=== PATIENT | female | born 1975 | race Caucasian/White ===

== ENCOUNTER → 2025-02-26 | Outpatient (CLI) | payer OTHER, SELFPAY ==
--- NOTE | 2025-02-26 10:59 | XR_ITS ---
Examination: Right hip AP, lateral, AP pelvis 3 views Technique: Hip AP lateral, AP pelvis, 3 views Exam date and time: February 26, 2025, 1113 hours INDICATIONS: Right hip pain and popping sensation 2 months FINDINGS: Bilateral mild hip osteoarthritis No right hip fracture or dislocation. No avascular necrosis IMPRESSION: Mild bilateral hip osteoarthritis Given the patient's presentation, consider MRI hip without contrast follow-up.
[2025-02-26 11:56] LABS: Basophils # (Auto) 0.1 Thou/mm3 (0.0-0.2); Basophils % (Auto) 1 % (0-2.5); Eosinophils # (Auto) 0.1 Thou/mm3 (0.0-0.5); Eosinophils % (Auto) 2 % (0-10); Hematocrit 39.9 % (36.0-46.0); Hemoglobin 12.7 g/dL (12.0-16.0); Immature Granulocytes Auto 0.02 Thou/mm3 (0.00-0.00); Lymphocytes # (Auto) 1.9 Thou/mm3 (1.0-4.8); Lymphocytes % (Auto) 32 % (10-50); Mean Corpuscular HGB Conc 31.8 g/dl (31.0-37.0); Mean Corpuscular Hemoglobin 29.5 pg (25.0-35.0); Mean Corpuscular Volume 93 fL (80-100); Monocytes # (Auto) 0.3 Thou/mm3 (0.0-0.8); Monocytes % (Auto) 5 % (0-12); Neutrophils # (Auto) 3.4 Thou/mm3 (1.8-7.7); Neutrophils % (Auto) 59 % (37-80); Nucleated Red Blood Cell # 0.00 Thou/mm3 (0.00-0.00); Nucleated Red Blood Cell % 0 /100 WBC (0); Platelet Count 308 Thou/mm3 (140-440); RDW Standard Deviation 46.0 fL (36.4-46.3); Red Blood Count 4.31 Miln/mm3 (4.00-5.20); White Blood Count 5.8 Thou/mm3 (3.6-11.0)
[2025-02-26 12:07] LABS: Glucose Estimated Average 100 mg/dL (80-131); Hemoglobin A1C 5.1 % Hgb (4.8-6.0)
[2025-02-26 12:09] LABS: Follicle Stimulating Hormone 26.86 mIU/mL (See Note); Vitamin B12 602 pg/mL (211-911); Vitamin D 25 Hydroxy Total 34.6 ng/mL (7.3-40.2)
[2025-02-26 12:15] LABS: Alanine Aminotransferase 8 U/L (10-49); Albumin, Serum 4.7 gm/dL (3.5-5.0); Albumin/Globulin Ratio 2.2 (1.2-2.2); Alkaline Phosphatase 47 U/L (46-116); Anion Gap 10 (7-16); Aspartate Amino Transferase 18 U/L (0-34); BUN/Creatinine Ratio 18 Ratio (12-20); Bilirubin,Total 0.6 mg/dL (0.3-1.2); Blood Urea Nitrogen 14 mg/dL (9-23); Calcium 9.2 mg/dL (8.3-10.6); Calcium (Corrected) 9.2 mg/dL (8.5-10.1); Carbon Dioxide 25.1 mMol/L (20.0-31.0); Cardiac Risk Estimate 2.9 RATIO (3.7-5.6); Chloride 107 mMol/L (98-107); Cholesterol 181 mg/dL (132-200); Creatinine (Component) 0.8 mg/dL (0.6-1.3); Globulin 2.1 gm/dL (2.3-3.5); Glucose 93 mg/dL (74-106); HDL Cholesterol 63 mg/dL (40-60); LDL Cholesterol,Calculated 107 mg/dL (0-130); Osmolality,Calculated 283 (275-295); Potassium 3.7 mMol/L (3.4-5.1); Sodium 142 mMol/L (136-145); Thyroid Stimulating Hormone 2.36 uIU/mL (0.55-4.78); Total Protein 6.8 gm/dL (5.7-8.2); Triglycerides 57 mg/dL (30-150); Uric Acid 4.5 mg/dL (3.1-7.8); eGFR > 60 See Note
[2025-02-26 12:28] LABS: Collection Type, Urine Clean Catch
[2025-02-26 12:55] LABS: Bacteria,Urine 1+; Bilirubin,Urine Negative (Negative); Blood,Urine 1+ (Negative); Clarity,Urine Turbid (Clear/Hazy); Color,Urine Yellow (Lt Yel-Yel); Glucose, Urine Negative (Negative); Ketones,Urine 2+ (Negative); Leukocyte Esterase,Urine Negative (Negative); Nitrite,Urine Negative (Negative); PH,Urine 5.5 (5.0-7.0); Protein,Urine Trace (Neg - Trace); RBC,Urine 11 /hpf (0-3); Specific Gravity,Urine 1.033 (1.001-1.035); Squamous Epithelial Cell,Urine 6 /hpf (0-5); Urobilinogen,Urine Negative mg/dL (0.0-1.0); WBC,Urine 6 /hpf (0-5)
[2025-03-05 07:05] LABS: Estrogen, Total, Serum* 364 pg/mL; Luteinizing Hormone* 29.0 mIU/mL; Progesterone,LC/MS* 1.4 ng/mL
== END | disposition home or self-care (01) ==
LOC: CDIM 10:49 → COPL 11:22
PROVIDERS: PCP Internal Medicine; Referring Provider Internal Medicine; Visit Provider Radiology Diagnostic Radiology
DX: M16.0 Bilateral primary osteoarthritis of hip (principal); Z00.00 Encounter for general adult medical examination without abnormal findings
CPT/HCPCS: 36415; 73502; 80053; 80061; 81001; 82306; 82607; 82672; 83001; 83002; 83036; 84144; 84443; 84550; 85025

== ENCOUNTER 2025-04-19 08:18 | Outpatient (AMB) | payer OTHER, SELFPAY ==
--- NOTE | 2025-04-19 08:41 | ORTHONT_ITS ---
Vital signs 04/19/25 08:42 Height 1.57 m Height Method Stated Weight 77.224 kg Weight Measurement Method Standing Scale BMI 31.1 BP 125/79 Blood Pressure Source Automatic Cuff Blood Pressure Location Left Upper Arm Position Sitting Respiration 18 Pulse 79 Pulse Source Monitor Temp 97.8 F Temp Source Temporal Artery Scan Pulse Oximetry (%) 97 Oxygen Delivery Method Room Air Med/Allergies Allergies & Medications Allergies erythromycin base Allergy (Severe, Verified 04/19/25 08:42) HIVES levofloxacin Allergy (Severe, Verified 04/19/25 08:42) HALLUCINATIONS adhesive tape Allergy (Mild, Verified 04/19/25 08:42) Redness of Skin Sulfa (Sulfonamide Antibiotics) Allergy (Unknown, Verified 04/19/25 08:42) RASH, SWELLING Medication Reconciliation cyanocobalamin (vitamin B-12) 1,000 mcg tablet (Vitamin B-12) 1,000 mcg PO QDAY 12/01/18 [History Confirmed 04/19/25] multivitamin with minerals (Multiple Vitamin-Minerals tablet) 2 tab PO DAILY 12/01/18 [History Confirmed 04/19/25] etodolac 400 mg tablet 400 mg PO BID PRN pain #30 tabs 05/10/21 [Rx Confirmed 04/19/25] metaxalone 800 mg tablet (Skelaxin) 800 mg PO TID PRN muscle pain #30 tabs 05/10/21 [Rx Confirmed 04/19/25] meloxicam 7.5 mg tablet 7.5 mg PO QDAY #45 tabs 04/19/25 [Rx] Exam Exam Patient is in no acute distress and is cooperative with the examination today. Breathing is nonlabored. In no respiratory distress. Patient has no paraspinal tenderness. Spinal deformity cannot be appreciated. The gait of the patient is nonantalgic Bilateral extremities were evaluated and demonstrates sensation intact to light touch. Palpable pedal pulses are present. No significant edema is present. Bilateral knees were examined and the patient has full strength and range of motion.. The left hip was examined. Patient was able to flex to 90 degrees, adduct to 30 degrees, abduct to 40 degrees, internally rotate to 20 degrees, and externally rotate to 20 degrees. Patient has a negative logroll. Stinchfield is negative. The patient is nontender diffusely to touch. She has a positive FADIR and logroll. X-rays demonstrate mild arthritis of her bilateral hips Assessment and Plan Problem List (1) Arthritis of right hip: Status: Acute (2) Labral tear of hip joint: Status: Acute Plan ASSESSMENT AND PLAN 1. Right hip pain: Right hip pain has been ongoing for a couple of years, aggravated after 12/2024. Symptoms include clicking and popping, with pain radiating from the groin to the glute. X-rays show no severe arthritis, and a hip replacement is not needed. The pain is likely due to a torn labrum associated with early arthritis. A prescription for an anti-inflammatory medication has been sent to the pharmacy. Physical therapy has been recommended, and she will receive a call from the therapy center. An intra-articular hip injection will be administered, and she will be contacted by the injection center. Follow-up: Follow up in 6 to 8 weeks. Office Procedures GNS Level of Care Nursing/Assessment Patient Status: Initial/New Patient Nursing Assessment/Reassesment: Medication Reconciliation, Update PMH in EMR and Vital Signs Coordination of Care: Complex Care and Chronic Disease 1-5, Education Complex Pt/Fam, Consent,records obtained, informed consent, 1 Ins Authorization, Lab and Imaging orders, Results/Orders obtained and Staff clarify orders New Patient Charge New Patient Point Assignment: 1124 New Patient Point Charge: INTEGRATION DIRECTOR Level 4 ([id number]) MA Intake Visit Data Collection New Patient or Established: New Patient (never been to [facility]) Reason for Visit:: RIGHT HIP PAIN Seen by Clinical Staff ONLY (RN/MA): No PCP or OBGYN visit in last 3 months: Yes Hx Now: No Do You Feel Safe at Home: Yes Authorities Contacted: N/A Questionairres Past Medical History Past Medical History Have you ever been diagnosed with any of the following: Neurological Problems Seizures: No Cardiology Problems Heart Murmur: Yes (RESOLVED) Congestive Heart Failure: No Edema: Yes (LEFT FOOT FOR THIS PROC) Respiratory Problems Chronic Obstructive Pulmonary Disease (COPD): No Smoking: No Smoking Cessation Counseling: No Smoking Exposure: No Stomache/Intestinal Problems Hepatitis: No Genital/Urinary Problems Renal Disease: No Kidney Stones: Yes (HAD PROC 2000) Reproductive Problems Previous Pregnancies: Yes (X4) Endocrine Problems Diabetes Mellitus Type 1: No Diabetes Mellitus Type 2: No Blood Problems Anemia: Yes (DURING PREGNANCIES) Other Problems Hospitalization: No Shingles: No Falls: No Blood Transfusions: No Blood Transfusion Reaction: No Anesthesia Reactions: No Chemotherapy: No Radiation Therapy: No MRSA: No Chicken Pox: Yes Cancer: No Subjective Visit Visit for: new patient and hip (RIGHT) Immunization / Flu Flu Vaccine in the Last 12 Months: No Flu Vaccine Exclusion Criteria: Refused by Patient History of Present Illness Chief complaint: RIGHT HIP PAIN Date of injury / onset of symptoms: 12/2024 HISTORY OF PRESENT ILLNESS I, Andrea Holley, have obtained verbal consent from the patient, to be recorded during this encounter which may include, but not limited to, medical history, examination, treatment plans, and relevant health information.? Patient was informed that recording will be read and reviewed by myself before inclusion in the medical chart. The patient is a female who presents today with right hip pain that has been ongoing for a couple of years. She states the pain got aggravated after December 2024. She had laying down x-rays completed here at [facility]. She has not had injections, no physical therapy, and anti-inflammatories are somewhat helping. She reports experiencing a sensation of clicking and popping in her groin area, which extends towards the back and radiates from the groin to the gluteal region. This discomfort is severe enough to prevent her from lifting her grandchildren. Despite the pain, she is able to perform daily activities such as putting on socks and shoes, although it does not feel very good. She describes the sensation as if something is out of place. She recalls a fall at the age of 16, which resulted in a fracture to the ball joint of her left hip, but this has since healed. In 2020, she underwent reconstructive foot surgery and was on crutches for 8 weeks, during which time she was unable to bear weight. She believes this period of non-weight bearing may have contributed to her current symptoms. She also reports a dull ache in her buttocks, but no radiation down the leg. She has been taking [id number] medications, which have not provided significant relief. However, she found some relief from a supplement containing B vitamins and anti-inflammatories, which she takes intermittently. She has lost 20 pounds since January 2025 due to dietary changes following her 's diagnosis of diabetes. 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 She is open to trying physical therapy and is considering a hip injection. PAST SURGICAL HISTORY: Reconstructive foot surgery in 2020 Personal History Occupation: [employer] OF [employer]UC[employer] Pain Pain level (0-10): 2 Pain duration: ON AND OFF Pain location: groin and posterior Pain quality: sharp, aching and other (specify) (CLICKING/POPPING) Pain timing: night, increases with activity and stairs Associated signs & symptoms: none Ambulatory data Ambulatory device: none Treatments Number of previous injections: 0 Improvement with previous injections: No Number of Physical Therapy sessions: 0 Improvement with PT: No Improvement with NSAIDS: no (IBUPROFEN) Review of Systems Review of Systems: All systems negative unless otherwise noted in HPI.
[2025-04-19 08:42] VITALS: BP 125/79; PULSE 79; RESP 18; TEMP 36.6; O2SAT 97; BMI 31.1
== END 2025-04-19 08:53 | disposition home or self-care (01) ==
LOC: HODSRG 08:18
PROVIDERS: PCP Internal Medicine; Referring Provider Internal Medicine; Supervising Provider Orthopaedic Surgery Adult Reconstructive Orthopaedic Surgery; Visit Provider Orthopaedic Surgery Adult Reconstructive Orthopaedic Surgery
DX: M16.11 Unilateral primary osteoarthritis, right hip (principal); Z28.21 Immunization not carried out because of patient refusal; S73.191A Other sprain of right hip, initial encounter; X58.XXXA Exposure to other specified factors, initial encounter
CPT/HCPCS: 99204; G0463